=== PATIENT | male | born 1970 | race Caucasian/White ===

== ENCOUNTER → 2020-05-17 | Outpatient (CLI) | payer BC ==
[~2020-05-17] MED LIST: PROTONIX40 MG PO; ZANTAC 7575 MG PO; ZYRTEC10 MG PO
== END ==
LOC: CT 08:10
DX: C64.9 Malignant neoplasm of unspecified kidney, except renal pelvis (principal)
CPT/HCPCS: 74170; Q9967

== ENCOUNTER → 2021-06-04 | Outpatient (CLI) | payer BC | LOC: CT 05-17 11:30 | DX: C64.9 Malignant neoplasm of unspecified kidney, except renal pelvis (principal) | CPT/HCPCS: 71260; Q9967 ==